=== PATIENT | female | born 1955 | race Caucasian/White ===

== ENCOUNTER 2019-01-08 04:13 | Emergency (ER) | payer MEDICAID ==
[~2019-01-08] VITALS: Ht 165.1 cm; Wt 54.0 kg
[~2019-01-08 04:13] MED LIST: BIOT1TAB PO; FISH12002 PO; FOLI1TAB16 PO; FURO-150 PO; LACT10SO32 PO; MULT-1179 PO; PANT40TA4 PO; SPIR25TA PO; thiamine tablet PO
[2019-01-08] MEDS ORDERED: LIDOcaine 1% 30ml preserv. free vial IJ STA ×2 (05:28→05:30)
[2019-01-08 05:30] LABS: ALANINE AMINOTRANSFERASE 35 U/L (12-78); ALBUMIN 2.9 G/DL (3.4-5.0); ALBUMIN/GLOBULIN RATIO 0.7 (1.1-1.5); ALKALINE PHOSPHATASE 72 IU/L (46-116); ANION GAP 9 (8-16); ASPARTATE AMINO TRANSFERASE 52 U/L (10-37); BILIRUBIN,TOTAL 1.7 MG/DL (0.1-1.0); BLOOD UREA NITROGEN 14 MG/DL (7-18); BUN/CREATININE RATIO 14.1 (6.6-38.0); CALCIUM 8.8 MG/DL (8.5-10.1); CHLORIDE 102 MMOL/L (99-107); CREATININE 0.99 MG/DL (0.40-0.90); GLUCOSE 111 MG/DL (70-104); LIPASE 248 U/L (73-393); POTASSIUM 3.3 MMOL/L (3.5-5.1); SODIUM 136 MMOL/L (135-145); TOTAL CARBON DIOXIDE 25.2 MMOL/L (24-32); TOTAL PROTEIN 7.1 G/DL (6.4-8.2); eGFR 57 ML/MIN
[2019-01-08 05:43] LABS: BASOPHILS # (AUTO) 0.1 X10'3 (0-0.2); BASOPHILS % (AUTO) 0.9 % (0-1); EOSINOPHILS # (AUTO) 0.4 X10'3 (0-0.9); EOSINOPHILS % (AUTO) 5.5 % (0-6); HEMATOCRIT 35.4 % (35.0-45.0); LYMPHOCYTES # (AUTO) 2.1 X10'3 (1.1-4.8); LYMPHOCYTES % (AUTO) 30.7 % (21-51); MEAN CORPUSCULAR HEMOGLOBIN 36.5 PG (27.0-31.0); MEAN CORPUSCULAR HGB CONC 33.9 g/dL (33.0-36.5); MEAN CORPUSCULAR VOLUME 107.7 FL (78-98); MEAN PLATELET VOLUME 9.6 FL (7.4-10.4); MONOCYTES # (AUTO) 0.9 X10'3 (0-0.9); MONOCYTES % (AUTO) 12.9 % (2-12); NEUTROPHILS # (AUTO) 3.4 X10'3 (1.8-7.7); PLATELET COUNT 125 X10'3 (140-440); RED BLOOD COUNT 3.29 X10'6 (4.20-5.60); RED CELL DISTRIBUTION WIDTH 13.1 % (11.5-14.5); WHITE BLOOD COUNT 6.7 X10'3 (4.5-11.0)
[2019-01-08] MEDS ORDERED: albumin (human) 25% 100 ML IV solution IV ONE (05:45)
[2019-01-08 06:42] VITALS: BP 111/63
== END 2019-01-08 06:44 | disposition home or self-care (01) ==
LOC: ER 04:14
DX: R18.8 Other ascites (principal); R41.0 Disorientation, unspecified; R10.9 Unspecified abdominal pain; F10.10 Alcohol abuse, uncomplicated; Z86.19 Personal history of other infectious and parasitic diseases; Z88.5 Allergy status to narcotic agent; Z79.899 Other long term (current) drug therapy; Y90.9 Presence of alcohol in blood, level not specified
CPT/HCPCS: 36415; 49083; 80053; 83690; 85025; 85610; 96365; 99285; J2001; P9047

== ENCOUNTER 2019-02-09 07:26 | Day surgery (SDC) | payer MEDICAID ==
[~2019-02-09] VITALS: Ht 167.6 cm; Wt 53.3 kg
[2019-02-09] VITALS (7 sets, daily range): BP systolic 96–109; BP diastolic 56–67
[2019-02-09] MEDS ORDERED: albumin 25% 100mL bottle x 1 IV PRN (07:55)
[2019-02-09] MEDS ORDERED: normal saline 1000ml 1,000 ML IV PRN (07:55)
[2019-02-09] MEDS ORDERED: THIA50TA10 PO (08:09)
[2019-02-09] MEDS ORDERED: MULT-933 PO (08:09)
[2019-02-09] MEDS ORDERED: FOLI0.4T2 PO (08:09)
[2019-02-09] MEDS ORDERED: FURO-150 PO (08:09)
[2019-02-09] MEDS ORDERED: LACT10SO PO (08:09)
[2019-02-09] MEDS ORDERED: SPIR25TA5 PO (08:09)
[2019-02-09] MEDS ORDERED: PANT-47 PO (08:09)
== END 2019-02-09 10:05 | disposition home or self-care (01) ==
LOC: SSTAY O 07:26
PROVIDERS: ATTEND Radiology Diagnostic Radiology
DX: K70.31 Alcoholic cirrhosis of liver with ascites (principal); Z88.8 Allergy status to other drugs, medicaments and biological substances; Z88.5 Allergy status to narcotic agent; Z79.899 Other long term (current) drug therapy
CPT/HCPCS: 49083; C1729; J7030; P9047

== ENCOUNTER 2020-01-18 05:22 | Emergency (ER) | payer MEDICAID, OTHER ==
[~2020-01-18] VITALS: Ht 167.6 cm; Wt 47.4 kg
[~2020-01-18 05:22] MED LIST changes: +FOLI0.4T2 PO; -FOLI1TAB16 PO; +LACT10SO PO; -LACT10SO32 PO; -MULT-1179 PO; +MULT-933 PO; +PANT-47 PO; -PANT40TA4 PO; -SPIR25TA PO; +SPIR25TA5 PO; +THIA50TA10 PO; -thiamine tablet PO
[2020-01-18 05:24] VITALS: BP 141/72
--- NOTE | 2020-01-18 05:46 | NUR ---
pt states she currently drinks a pint of vodka a day
[2020-01-18 06:00] LABS: BASOPHILS % (AUTO) 0.6 % (0-1); EOSINOPHILS # (AUTO) 0.4 X10'3 (0-0.9); EOSINOPHILS % (AUTO) 5.3 % (0-6); HEMATOCRIT 44.3 % (35.0-45.0); HEMOGLOBIN 14.7 g/dl (12.0-16.0); LYMPHOCYTES # (AUTO) 3.9 X10'3 (1.1-4.8); LYMPHOCYTES % (AUTO) 56.1 % (21-51); MEAN CORPUSCULAR HEMOGLOBIN 36.3 PG (27.0-31.0); MEAN CORPUSCULAR HGB CONC 33.2 g/dL (33.0-36.5); MEAN CORPUSCULAR VOLUME 109.2 FL (78-98); MEAN PLATELET VOLUME 8.9 FL (7.4-10.4); MONOCYTES # (AUTO) 0.5 X10'3 (0-0.9); MONOCYTES % (AUTO) 6.6 % (2-12); NEUTROPHILS # (AUTO) 2.2 X10'3 (1.8-7.7); NEUTROPHILS % (AUTO) 31.4 % (42-75); PLATELET COUNT 72 X10'3 (140-440); RED BLOOD COUNT 4.06 X10'6 (4.20-5.60); RED CELL DISTRIBUTION WIDTH 15.1 % (11.5-14.5); WHITE BLOOD COUNT 6.9 X10'3 (4.5-11.0)
[2020-01-18 06:03] LABS: URINE HCG NEGATIVE (NEG)
[2020-01-18 06:09] LABS: CLARITY,URINE CLEAR (Clear); COLOR,URINE YELLOW (Yellow); GLUCOSE, URINE NEGATIVE (Neg); KETONES,URINE 15 mg/dl (Neg); LEUKOCYTE ESTERASE ,URINE NEGATIVE (Neg); NITRITES, URINE NEGATIVE (Neg); OCCULT BLOOD,URINE MODERATE (Neg); PROTEIN,URINE 30 mg/dl (Neg); URINE AMPHETAMINE SCREEN NEGATIVE (Neg); URINE BARBITUATE SCREEN NEGATIVE (Neg); URINE BENZODIAZEPINES SCREEN NEGATIVE (Neg); URINE CANNABINOID SCREEN NEGATIVE (Neg); URINE COCAINE SCREEN NEGATIVE (Neg); URINE METHADONE SCREEN NEGATIVE (Neg); URINE OPIATE SCREEN NEGATIVE (Neg); URINE PHENCYCLIDINE SCREEN NEGATIVE (Neg)
[2020-01-18 06:11] LABS: UA COLLECTION TYPE CLN CATCH MIDSTREAM
[2020-01-18 06:14] LABS: PARTIAL THROMBOPLASTIN TIME 26 SECONDS (22-32)
[2020-01-18 06:15] LABS: ALANINE AMINOTRANSFERASE 45 U/L (12-78); ALBUMIN 3.6 G/DL (3.4-5.0); ALBUMIN/GLOBULIN RATIO 0.8 (1.1-1.5); ALKALINE PHOSPHATASE 91 IU/L (46-116); ANION GAP 16 (8-16); ASPARTATE AMINO TRANSFERASE 107 U/L (10-37); BILIRUBIN,TOTAL 1.1 MG/DL (0.1-1.0); BLOOD UREA NITROGEN 12 MG/DL (7-18); CALCIUM 8.9 MG/DL (8.5-10.1); CHLORIDE 105 MMOL/L (99-107); CREATININE 0.86 MG/DL (0.40-0.90); GLUCOSE 90 MG/DL (70-104); POTASSIUM 3.8 MMOL/L (3.5-5.1); SODIUM 144 MMOL/L (135-145); TOTAL PROTEIN 8.1 G/DL (6.4-8.2); eGFR 67 ML/MIN
[2020-01-18 06:16] LABS: ETHANOL 0.421 GM/DL (0.0-0.010); LIPASE 229 U/L (73-393)
[2020-01-18 06:16] LABS: RBC,URINE 0-2 /HPF (0-2); SQUAMOUS EPITHELIAL CELL,UR MANY /LPF (FEW)
[2020-01-18 06:17] LABS: BACTERIA,URINE 1+ /HPF (Neg); HYALINE CASTS 0-3 /LPF (NEGATIVE)
[2020-01-18 06:35] LABS: PLATELET ESTIMATE DECREASED; SMUDGE CELLS FEW; TOTAL CELLS COUNTED 100
--- NOTE | 2020-01-18 07:15 | NUR ---
PATIENT DEPARTING FROM ER THROUGH AMBULANCE DOORS. PATIENT BROUGHT BACK IN TO HAVE IV REMOVED AND STATES SHE DOES NOT WANT TO WAIT ANY LONGER. IV REMOVED AND BANDAID APPLIED TO SITE. PATIENT DEPARTED AMBULATORY IN STABLE CONDITION. CHARGE NURSE AND DR. WALKER NOTIFIED OF PATIENT ELOPEMENT.
== END 2020-01-18 18:56 | disposition left against medical advice (07) ==
LOC: ER 05:23
DX: K70.31 Alcoholic cirrhosis of liver with ascites (principal); R10.9 Unspecified abdominal pain; F10.10 Alcohol abuse, uncomplicated; Z86.19 Personal history of other infectious and parasitic diseases; Z88.5 Allergy status to narcotic agent; Z88.8 Allergy status to other drugs, medicaments and biological substances; Z79.899 Other long term (current) drug therapy; Y90.0 Blood alcohol level of less than 20 mg/100 ml
CPT/HCPCS: 36415; 80053; 80305; 80320; 81001; 81025; 83690; 85025; 85610; 85730; 99284

== ENCOUNTER 2020-03-21 06:34 | Day surgery (SDC) | payer BC ==
[~2020-03-21] VITALS: Ht 167.6 cm; Wt 50.6 kg
[2020-03-21 07:22] VITALS: BP 137/107
[2020-03-21] MEDS ORDERED: albumin 25% 100mL bottle x 1 IV PRN (07:25)
[2020-03-21 08:45] VITALS: BP 135/78
[2020-03-21 09:00] VITALS: BP 115/77
[2020-03-21 09:15] VITALS: BP 117/72
[2020-03-21 09:30] VITALS: BP 122/74
== END 2020-03-21 09:55 | disposition home or self-care (01) ==
LOC: SSTAY O 06:34
PROVIDERS: ATTEND Radiology Diagnostic Radiology
DX: K70.31 Alcoholic cirrhosis of liver with ascites (principal); F41.9 Anxiety disorder, unspecified; F32.9 Major depressive disorder, single episode, unspecified; Z86.19 Personal history of other infectious and parasitic diseases; D69.6 Thrombocytopenia, unspecified; E87.6 Hypokalemia; E83.42 Hypomagnesemia; Z88.8 Allergy status to other drugs, medicaments and biological substances; Z88.5 Allergy status to narcotic agent; Z72.89 Other problems related to lifestyle; F17.210 Nicotine dependence, cigarettes, uncomplicated; Z79.899 Other long term (current) drug therapy
CPT/HCPCS: 49083

== ENCOUNTER 2020-07-07 08:12 | Day surgery (SDC) | payer BC ==
[~2020-07-07] VITALS: Ht 165.1 cm; Wt 58.8 kg
[2020-07-07] VITALS (12 sets, daily range): BP systolic 92–152; BP diastolic 55–93
[2020-07-07] MEDS ORDERED: normal saline 1000ml 1,000 ML IV PRN (08:40)
[2020-07-07] MEDS ORDERED: ALPR1TAB2 PO (08:44)
[2020-07-07] MEDS ORDERED: TRAZ-251 PO (08:45)
[2020-07-07] MEDS: albumin 25% 100mL bottle x 1 IV PRN ×2 (09:49→10:43)
== END 2020-07-07 12:05 | disposition home or self-care (01) ==
LOC: SSTAY O 08:12
PROVIDERS: ATTEND Radiology Vascular & Interventional Radiology
DX: K70.31 Alcoholic cirrhosis of liver with ascites (principal); F41.9 Anxiety disorder, unspecified; F32.9 Major depressive disorder, single episode, unspecified; D69.6 Thrombocytopenia, unspecified; E87.6 Hypokalemia; E83.42 Hypomagnesemia; Z88.8 Allergy status to other drugs, medicaments and biological substances; Z88.5 Allergy status to narcotic agent; Z79.899 Other long term (current) drug therapy; Z86.19 Personal history of other infectious and parasitic diseases; Z72.89 Other problems related to lifestyle; F17.290 Nicotine dependence, other tobacco product, uncomplicated; Z98.890 Other specified postprocedural states; Z87.19 Personal history of other diseases of the digestive system
CPT/HCPCS: 49083; P9047

== ENCOUNTER 2020-08-10 08:24 | Day surgery (SDC) | payer BC ==
[2020-08-10] VITALS (7 sets, daily range): BP systolic 90–116; BP diastolic 54–79
[~2020-08-10] VITALS: Ht 167.6 cm; Wt 58.8 kg
[~2020-08-10 08:24] MED LIST changes: +ALPR1TAB2 PO; -BIOT1TAB PO; -FISH12002 PO; -LACT10SO PO; -MULT-933 PO; -PANT-47 PO; -THIA50TA10 PO; +TRAZ-251 PO
[2020-08-10] MEDS ORDERED: albumin 25% 100mL bottle x 1 IV PRN (08:55)
[2020-08-10] MEDS ORDERED: FOLI0.4T2 PO (09:02)
[2020-08-10] MEDS ORDERED: TRAZ-251 PO (09:02)
[2020-08-10] MEDS ORDERED: ALPR1TAB2 PO (09:02)
[2020-08-10] MEDS ORDERED: OMEP40CA13 PO (09:02)
== END 2020-08-10 10:50 | disposition home or self-care (01) ==
LOC: SSTAY O 08:24
PROVIDERS: ATTEND Radiology Diagnostic Radiology
DX: K70.31 Alcoholic cirrhosis of liver with ascites (principal); F32.9 Major depressive disorder, single episode, unspecified; F41.9 Anxiety disorder, unspecified; D69.6 Thrombocytopenia, unspecified; E87.6 Hypokalemia; E83.42 Hypomagnesemia; Z86.19 Personal history of other infectious and parasitic diseases; Z88.8 Allergy status to other drugs, medicaments and biological substances; Z88.5 Allergy status to narcotic agent; Z79.899 Other long term (current) drug therapy
CPT/HCPCS: 49083; P9047

== ENCOUNTER 2020-10-24 07:43 | Day surgery (SDC) | payer BC ==
[2020-10-24] VITALS (7 sets, daily range): BP systolic 97–134; BP diastolic 40–76
[~2020-10-24] VITALS: Ht 165.1 cm; Wt 54.2 kg
[~2020-10-24 07:43] MED LIST changes: -FOLI0.4T2 PO; +FOLI0.4T6 PO; +OMEP40CA13 PO
[2020-10-24] MEDS ORDERED: FLUT16SP2 BOTHNARES (08:29)
[2020-10-24] MEDS ORDERED: LATA7.5D EACH EAR (08:29)
[2020-10-24] MEDS ORDERED: DICL150D3 TOP (08:29)
[2020-10-24] MEDS: albumin 25% 100mL bottle x 1 IV PRN ×2 (09:25→10:20)
== END 2020-10-24 10:55 | disposition home or self-care (01) ==
LOC: SSTAY O 07:43
PROVIDERS: ATTEND Radiology Diagnostic Radiology
DX: K70.31 Alcoholic cirrhosis of liver with ascites (principal); F41.9 Anxiety disorder, unspecified; F32.9 Major depressive disorder, single episode, unspecified; D69.6 Thrombocytopenia, unspecified; E87.6 Hypokalemia; E83.42 Hypomagnesemia; Z86.19 Personal history of other infectious and parasitic diseases; Z98.890 Other specified postprocedural states; Z72.89 Other problems related to lifestyle; F17.290 Nicotine dependence, other tobacco product, uncomplicated; Z88.8 Allergy status to other drugs, medicaments and biological substances; Z88.5 Allergy status to narcotic agent; Z79.899 Other long term (current) drug therapy
CPT/HCPCS: 49083; P9047

== ENCOUNTER 2020-11-29 11:19 | Emergency (ER) | payer BC ==
[~2020-11-29] VITALS: Ht 165.1 cm; Wt 61.4 kg
[~2020-11-29 11:19] MED LIST changes: +DICL150D3 TOP; +FLUT16SP2 BOTHNARES; +LATA7.5D EACH EAR; -OMEP40CA13 PO; +OMEP40CA21 PO
[2020-11-29] MEDS ORDERED: normal saline 1000ML IV soln IVB ONE (13:45)
[2020-11-29] MEDS ORDERED: ondansetron/PF 4mg/2ml inj IV ONE (13:45)
[2020-11-29 14:20] LABS: BASOPHILS % (AUTO) 0.4 % (0-1); EOSINOPHILS % (AUTO) 0.7 % (0-6); HEMATOCRIT 38.5 % (35.0-45.0); HEMOGLOBIN 13.1 g/dl (12.0-16.0); LYMPHOCYTES # (AUTO) 0.7 X10'3 (1.1-4.8); LYMPHOCYTES % (AUTO) 13.5 % (21-51); MEAN CORPUSCULAR HEMOGLOBIN 35.6 PG (27.0-31.0); MEAN CORPUSCULAR HGB CONC 34.1 g/dL (33.0-36.5); MEAN CORPUSCULAR VOLUME 104.2 FL (78-98); MEAN PLATELET VOLUME 8.7 FL (7.4-10.4); MONOCYTES # (AUTO) 0.5 X10'3 (0-0.9); MONOCYTES % (AUTO) 10.6 % (2-12); NEUTROPHILS # (AUTO) 3.8 X10'3 (1.8-7.7); NEUTROPHILS % (AUTO) 74.8 % (42-75); RED BLOOD COUNT 3.69 X10'6 (4.20-5.60); RED CELL DISTRIBUTION WIDTH 14.1 % (11.5-14.5); WHITE BLOOD COUNT 5.1 X10'3 (4.5-11.0)
[2020-11-29 14:30] LABS: PLATELET COUNT 48 X10'3 (140-440)
[2020-11-29 14:36] LABS: PARTIAL THROMBOPLASTIN TIME 26 SECONDS (22-32)
[2020-11-29 14:38] LABS: ALANINE AMINOTRANSFERASE 25 U/L (12-78); ALBUMIN 2.7 G/DL (3.4-5.0); ALBUMIN/GLOBULIN RATIO 0.6 (1.1-1.5); ALKALINE PHOSPHATASE 99 IU/L (46-116); ANION GAP 12 (8-16); ASPARTATE AMINO TRANSFERASE 68 U/L (10-37); BILIRUBIN,TOTAL 1.8 MG/DL (0.1-1.0); BLOOD UREA NITROGEN 16 MG/DL (7-18); BUN/CREATININE RATIO 24.6 (6.6-38.0); CALCIUM 8.5 MG/DL (8.5-10.1); CHLORIDE 105 MMOL/L (99-107); CREATININE 0.65 MG/DL (0.40-0.90); GLUCOSE 155 MG/DL (70-104); LIPASE 149 U/L (73-393); MAGNESIUM 1.7 MG/DL (1.5-2.4); SODIUM 141 MMOL/L (135-145); TOTAL CARBON DIOXIDE 23.9 MMOL/L (24-32); TOTAL PROTEIN 7.1 G/DL (6.4-8.2); eGFR > 90 ML/MIN
[2020-11-29 14:39] LABS: POTASSIUM 3.8 MMOL/L (3.5-5.1)
[2020-11-29 14:55] VITALS: BP 100/60
== END 2020-11-29 15:55 | disposition home or self-care (01) ==
LOC: ER 11:19
DX: K70.9 Alcoholic liver disease, unspecified (principal); K70.31 Alcoholic cirrhosis of liver with ascites; F41.9 Anxiety disorder, unspecified; R06.02 Shortness of breath; R11.2 Nausea with vomiting, unspecified; R19.7 Diarrhea, unspecified; R53.1 Weakness; Z86.19 Personal history of other infectious and parasitic diseases; Z72.89 Other problems related to lifestyle; Z88.8 Allergy status to other drugs, medicaments and biological substances; Z88.5 Allergy status to narcotic agent; Z79.899 Other long term (current) drug therapy
CPT/HCPCS: 36415; 71045; 80053; 82140; 83690; 83735; 85025; 85610; 85730; 93005; 96374; 99285; J2405; J7030

== ENCOUNTER 2020-12-01 06:36 | Day surgery (SDC) | payer BC ==
[~2020-12-01] VITALS: Ht 165.1 cm; Wt 56.5 kg
[2020-12-01] VITALS (14 sets, daily range): BP systolic 81–129; BP diastolic 50–85
[2020-12-01] MEDS ORDERED: normal saline 1000ml 1,000 ML IV PRN (07:00)
[2020-12-01] MEDS ORDERED: LIDOcaine 1% (10mg/ml) 2ml vial ONE (07:09)
[2020-12-01] MEDS ORDERED: ALPR1TAB2 PO (07:16)
[2020-12-01] MEDS ORDERED: SPIR25TA5 PO (07:18)
[2020-12-01] MEDS: albumin 25% 100mL bottle x 1 IV PRN ×2 (08:50→10:29)
[2020-12-01] MEDS ORDERED: normal saline 500ml IV soln 1,000 ML IV ONE (11:15)
== END 2020-12-01 12:35 | disposition home or self-care (01) ==
LOC: SSTAY O 06:36
PROVIDERS: ATTEND Radiology Vascular & Interventional Radiology
DX: K70.31 Alcoholic cirrhosis of liver with ascites (principal); R14.0 Abdominal distension (gaseous); F41.9 Anxiety disorder, unspecified; F32.9 Major depressive disorder, single episode, unspecified; D69.6 Thrombocytopenia, unspecified; E87.6 Hypokalemia; E83.42 Hypomagnesemia; Z86.19 Personal history of other infectious and parasitic diseases; Z88.8 Allergy status to other drugs, medicaments and biological substances; Z88.5 Allergy status to narcotic agent; Z98.890 Other specified postprocedural states; Z72.89 Other problems related to lifestyle
CPT/HCPCS: 49083; J2001; J7040; P9047

== ENCOUNTER 2020-12-21 07:56 | Day surgery (SDC) | payer BC ==
[2020-12-21] VITALS (9 sets, daily range): BP systolic 71–104; BP diastolic 42–65
[~2020-12-21] VITALS: Ht 165.1 cm; Wt 53.9 kg
[~2020-12-21 07:56] MED LIST changes: -FLUT16SP2 BOTHNARES; -LATA7.5D EACH EAR
[2020-12-21] MEDS ORDERED: albumin 25% 100mL bottle x 1 IV PRN (08:15)
== END 2020-12-21 11:08 | disposition home or self-care (01) ==
LOC: SSTAY O 07:56
PROVIDERS: ATTEND Radiology Vascular & Interventional Radiology
DX: K70.31 Alcoholic cirrhosis of liver with ascites (principal); F41.9 Anxiety disorder, unspecified; F32.9 Major depressive disorder, single episode, unspecified; D69.6 Thrombocytopenia, unspecified; E87.6 Hypokalemia; E83.42 Hypomagnesemia; Z98.890 Other specified postprocedural states; Z88.8 Allergy status to other drugs, medicaments and biological substances; Z88.5 Allergy status to narcotic agent; Z86.19 Personal history of other infectious and parasitic diseases; F17.290 Nicotine dependence, other tobacco product, uncomplicated; Z72.89 Other problems related to lifestyle; Z79.899 Other long term (current) drug therapy
CPT/HCPCS: 49083; P9047

== ENCOUNTER 2021-01-12 08:06 | Day surgery (SDC) | payer BC ==
[2021-01-12] VITALS (11 sets, daily range): BP systolic 80–133; BP diastolic 39–70
[~2021-01-12] VITALS: Ht 165.1 cm; Wt 56.7 kg
[2021-01-12] MEDS ORDERED: albumin 25% 100mL bottle x 1 IV PRN (08:35)
[2021-01-12] MEDS ORDERED: FLUT16SP10 (08:39)
[2021-01-12] MEDS ORDERED: COVID-19 VACC, MRNA(PFIZER)/PF--BNT162b2 syringe IMVAC ONE (09:55)
== END 2021-01-12 11:57 | disposition home or self-care (01) ==
LOC: SSTAY O 08:06
PROVIDERS: ATTEND Radiology Vascular & Interventional Radiology
DX: K70.31 Alcoholic cirrhosis of liver with ascites (principal); F41.9 Anxiety disorder, unspecified; F32.9 Major depressive disorder, single episode, unspecified; E87.6 Hypokalemia; D69.6 Thrombocytopenia, unspecified; E83.42 Hypomagnesemia; Z98.890 Other specified postprocedural states; Z72.89 Other problems related to lifestyle; F17.290 Nicotine dependence, other tobacco product, uncomplicated; Z79.899 Other long term (current) drug therapy; Z88.5 Allergy status to narcotic agent; Z88.8 Allergy status to other drugs, medicaments and biological substances; Z86.19 Personal history of other infectious and parasitic diseases; Z23 Encounter for immunization
CPT/HCPCS: 0001A; 49083; 91300; P9047

== ENCOUNTER 2021-02-06 07:47 | Day surgery (SDC) | payer BC ==
[2021-02-06] VITALS (13 sets, daily range): BP systolic 82–125; BP diastolic 48–78
[~2021-02-06] VITALS: Ht 167.6 cm; Wt 59.2 kg
[~2021-02-06 07:47] MED LIST changes: -DICL150D3 TOP; +DICL150D9 TOP; +FLUT16SP10; -FURO-150 PO; -SPIR25TA5 PO
[2021-02-06] MEDS ORDERED: VITA-268 PO (08:45)
[2021-02-06] MEDS: albumin 25% 100mL bottle x 1 IV PRN ×2 (09:09→09:53)
[2021-02-06] MEDS ORDERED: COVID-19 VACC, MRNA(PFIZER)/PF--BNT162b2 syringe IMVAC ONE (11:30)
== END 2021-02-06 13:07 | disposition home or self-care (01) ==
LOC: SSTAY O 07:47
PROVIDERS: ATTEND Radiology Diagnostic Radiology
DX: K70.31 Alcoholic cirrhosis of liver with ascites (principal); Z23 Encounter for immunization; F41.9 Anxiety disorder, unspecified; F32.9 Major depressive disorder, single episode, unspecified; D69.6 Thrombocytopenia, unspecified; E87.6 Hypokalemia; E83.42 Hypomagnesemia; Z86.19 Personal history of other infectious and parasitic diseases; Z98.890 Other specified postprocedural states; Z88.8 Allergy status to other drugs, medicaments and biological substances; Z88.5 Allergy status to narcotic agent; Z79.899 Other long term (current) drug therapy
CPT/HCPCS: 0002A; 49083; 91300; P9047

== ENCOUNTER 2021-03-08 06:27 | Day surgery (SDC) | payer MEDICARE, BC ==
[~2021-03-08] VITALS: Ht 165.1 cm; Wt 58.4 kg
[2021-03-08] VITALS (13 sets, daily range): BP systolic 98–131; BP diastolic 46–87
[~2021-03-08 06:27] MED LIST changes: +VITA-268 PO
[2021-03-08] MEDS ORDERED: folic acid PO (07:45)
[2021-03-08] MEDS ORDERED: DICL20GE TOP (07:45)
[2021-03-08] MEDS: albumin 25% 100mL bottle x 1 IV PRN ×2 (08:43→09:55)
== END 2021-03-08 11:08 | disposition home or self-care (01) ==
LOC: SSTAY O 06:27
PROVIDERS: ATTEND Radiology Diagnostic Radiology
DX: K70.31 Alcoholic cirrhosis of liver with ascites (principal); F41.9 Anxiety disorder, unspecified; F32.9 Major depressive disorder, single episode, unspecified; D69.6 Thrombocytopenia, unspecified; E87.6 Hypokalemia; E83.42 Hypomagnesemia; Z86.19 Personal history of other infectious and parasitic diseases; Z98.890 Other specified postprocedural states; Z72.89 Other problems related to lifestyle; Z79.899 Other long term (current) drug therapy
CPT/HCPCS: 49083; P9047

== ENCOUNTER 2021-03-29 05:53 | Day surgery (SDC) | payer MEDICARE, BC ==
[~2021-03-29] VITALS: Ht 165.1 cm; Wt 56.5 kg
[2021-03-29] VITALS (7 sets, daily range): BP systolic 104–128; BP diastolic 55–88
[~2021-03-29 05:53] MED LIST changes: -DICL150D9 TOP; +DICL20GE TOP; -FOLI0.4T6 PO; -OMEP40CA21 PO; -VITA-268 PO; +folic acid PO
[2021-03-29] MEDS ORDERED: albumin 25% 100mL bottle x 1 IV PRN (06:25)
== END 2021-03-29 10:00 | disposition home or self-care (01) ==
LOC: SSTAY O 05:53
PROVIDERS: ATTEND Radiology Vascular & Interventional Radiology
DX: K70.31 Alcoholic cirrhosis of liver with ascites (principal); F41.9 Anxiety disorder, unspecified; F32.9 Major depressive disorder, single episode, unspecified; D69.6 Thrombocytopenia, unspecified; E87.6 Hypokalemia; E83.42 Hypomagnesemia; F17.290 Nicotine dependence, other tobacco product, uncomplicated; Z98.890 Other specified postprocedural states; Z86.19 Personal history of other infectious and parasitic diseases; Z72.89 Other problems related to lifestyle; Z88.8 Allergy status to other drugs, medicaments and biological substances; Z88.5 Allergy status to narcotic agent; Z79.899 Other long term (current) drug therapy
CPT/HCPCS: 49083; P9047

== ENCOUNTER 2021-08-23 06:41 | Day surgery (SDC) | payer BC, MEDICARE ==
[~2021-08-23] VITALS: Ht 165.1 cm; Wt 52.8 kg
[2021-08-23] VITALS (9 sets, daily range): BP systolic 79–110; BP diastolic 46–78
[2021-08-23] MEDS ORDERED: albumin 25% 100mL bottle x 1 IV PRN (07:20)
[2021-08-23] MEDS ORDERED: LIDOcaine 1%/PF 5ML 10 MG/ML VIAL IJ ONE (07:40)
[2021-08-23] MEDS ORDERED: TRAM50TA2 PO (07:47)
== END 2021-08-23 10:00 | disposition home or self-care (01) ==
LOC: SSTAY O 06:41
PROVIDERS: ATTEND Radiology Diagnostic Radiology
DX: K70.31 Alcoholic cirrhosis of liver with ascites (principal); F41.9 Anxiety disorder, unspecified; F32.A Depression, unspecified; E87.6 Hypokalemia; D69.6 Thrombocytopenia, unspecified; E83.42 Hypomagnesemia; Z72.89 Other problems related to lifestyle; F17.290 Nicotine dependence, other tobacco product, uncomplicated; Z86.19 Personal history of other infectious and parasitic diseases; Z88.5 Allergy status to narcotic agent; Z88.8 Allergy status to other drugs, medicaments and biological substances; Z79.899 Other long term (current) drug therapy
CPT/HCPCS: 49083; J3490; P9047

== ENCOUNTER 2021-09-13 06:36 | Day surgery (SDC) | payer MEDICARE ==
[2021-09-13] VITALS (7 sets, daily range): BP systolic 86–106; BP diastolic 50–69
[~2021-09-13] VITALS: Ht 165.1 cm; Wt 53.6 kg
[~2021-09-13 06:36] MED LIST changes: +TRAM50TA2 PO
[2021-09-13] MEDS ORDERED: LIDOcaine 1%/PF 5ML 10 MG/ML VIAL SQ ONE (06:40)
[2021-09-13] MEDS ORDERED: albumin 25% 100mL bottle x 1 IV PRN (07:10)
[2021-09-13] MEDS ORDERED: OMEP40CA21 PO (07:31)
[2021-09-13] MEDS ORDERED: TRAZ-256 PO (07:31)
== END 2021-09-13 10:05 | disposition home or self-care (01) ==
LOC: SSTAY O 06:36
PROVIDERS: ATTEND Preventive Medicine Aerospace Medicine
DX: K70.31 Alcoholic cirrhosis of liver with ascites (principal); F41.9 Anxiety disorder, unspecified; F32.A Depression, unspecified; D69.6 Thrombocytopenia, unspecified; E87.6 Hypokalemia; E83.42 Hypomagnesemia; Z79.899 Other long term (current) drug therapy; Z88.5 Allergy status to narcotic agent; Z88.8 Allergy status to other drugs, medicaments and biological substances; Z86.19 Personal history of other infectious and parasitic diseases
CPT/HCPCS: 49083; J3490; P9047

== ENCOUNTER 2021-10-04 07:29 | Day surgery (SDC) | payer MEDICARE ==
[~2021-10-04] VITALS: Ht 165.1 cm; Wt 56.2 kg
[2021-10-04] VITALS (7 sets, daily range): BP systolic 98–121; BP diastolic 46–75
[~2021-10-04 07:29] MED LIST changes: +OMEP40CA21 PO; -TRAM50TA2 PO; -TRAZ-251 PO; +TRAZ-256 PO
[2021-10-04] MEDS ORDERED: albumin 25% 100mL bottle x 1 IV PRN (07:45)
[2021-10-04] MEDS ORDERED: VITA-268 PO (08:00)
[2021-10-04] MEDS ORDERED: LIDOcaine 1%/PF 5ML 10 MG/ML VIAL SQ ONE (08:05)
== END 2021-10-04 10:50 | disposition home or self-care (01) ==
LOC: SSTAY O 07:29
PROVIDERS: ATTEND Radiology Vascular & Interventional Radiology
DX: K70.31 Alcoholic cirrhosis of liver with ascites (principal); F41.9 Anxiety disorder, unspecified; F32.A Depression, unspecified; D69.6 Thrombocytopenia, unspecified; E87.1 Hypo-osmolality and hyponatremia; E83.42 Hypomagnesemia; Z86.19 Personal history of other infectious and parasitic diseases; Z98.890 Other specified postprocedural states; F17.290 Nicotine dependence, other tobacco product, uncomplicated; Z72.89 Other problems related to lifestyle; Z88.8 Allergy status to other drugs, medicaments and biological substances; Z88.5 Allergy status to narcotic agent; Z79.899 Other long term (current) drug therapy
CPT/HCPCS: 49083; J3490; P9047

== ENCOUNTER 2021-10-25 07:23 | Day surgery (SDC) | payer MEDICARE, MEDICAID ==
[~2021-10-25] VITALS: Ht 165.1 cm; Wt 54.1 kg
[2021-10-25] VITALS (9 sets, daily range): BP systolic 92–130; BP diastolic 48–70
[~2021-10-25 07:23] MED LIST changes: +VITA-268 PO
[2021-10-25] MEDS ORDERED: LIDOcaine 1%/PF 5ML 10 MG/ML VIAL SQ ONE (07:40)
[2021-10-25] MEDS ORDERED: normal saline 1000ml 1,000 ML IV PRN (07:50)
[2021-10-25] MEDS ORDERED: albumin 25% 100mL bottle x 1 IV PRN (07:50)
== END 2021-10-25 10:40 | disposition home or self-care (01) ==
LOC: SSTAY O 07:23
PROVIDERS: ATTEND Radiology Diagnostic Radiology
DX: K70.31 Alcoholic cirrhosis of liver with ascites (principal); F41.9 Anxiety disorder, unspecified; F32.A Depression, unspecified; D69.6 Thrombocytopenia, unspecified; E87.6 Hypokalemia; E83.42 Hypomagnesemia; Z72.89 Other problems related to lifestyle; F17.290 Nicotine dependence, other tobacco product, uncomplicated; Z98.890 Other specified postprocedural states; Z86.19 Personal history of other infectious and parasitic diseases; Z79.899 Other long term (current) drug therapy
CPT/HCPCS: 49083; J3490; P9047

== ENCOUNTER 2021-11-13 06:50 | Day surgery (SDC) | payer MEDICARE, MEDICAID ==
[~2021-11-13] VITALS: Ht 165.1 cm; Wt 53.0 kg
[2021-11-13] VITALS (8 sets, daily range): BP systolic 125–162; BP diastolic 63–101
[2021-11-13] MEDS ORDERED: LIDOcaine 1%/PF 5ML 10 MG/ML VIAL SQ ONE (07:00)
[2021-11-13] MEDS ORDERED: SOFO1TAB3 PO (07:11)
[2021-11-13] MEDS ORDERED: albumin 25% 100mL bottle x 1 IV PRN (07:25)
== END 2021-11-13 10:10 | disposition home or self-care (01) ==
LOC: SSTAY O 06:50
PROVIDERS: ATTEND Radiology Diagnostic Radiology
DX: K70.31 Alcoholic cirrhosis of liver with ascites (principal); F41.9 Anxiety disorder, unspecified; F32.A Depression, unspecified; D69.6 Thrombocytopenia, unspecified; E87.6 Hypokalemia; E83.42 Hypomagnesemia; F17.210 Nicotine dependence, cigarettes, uncomplicated; Z72.89 Other problems related to lifestyle; Z98.890 Other specified postprocedural states; Z86.19 Personal history of other infectious and parasitic diseases; Z79.899 Other long term (current) drug therapy
CPT/HCPCS: 49083; J3490; P9047

== ENCOUNTER 2021-12-06 06:43 | Day surgery (SDC) | payer MEDICARE, MEDICAID ==
[~2021-12-06] VITALS: Ht 165.1 cm; Wt 115.2 kg
[2021-12-06] VITALS (7 sets, daily range): BP systolic 102–148; BP diastolic 40–70
[~2021-12-06 06:43] MED LIST changes: +SOFO1TAB3 PO
[2021-12-06] MEDS ORDERED: LIDOcaine 1%/PF 5ML 10 MG/ML VIAL IJ ONE (07:05)
[2021-12-06] MEDS ORDERED: albumin 25% 100mL bottle x 1 IV PRN (07:05)
== END 2021-12-06 10:50 | disposition home or self-care (01) ==
LOC: SSTAY O 06:43
PROVIDERS: ATTEND Radiology Diagnostic Radiology
DX: K70.31 Alcoholic cirrhosis of liver with ascites (principal); F41.9 Anxiety disorder, unspecified; F32.A Depression, unspecified; D69.6 Thrombocytopenia, unspecified; E87.6 Hypokalemia; E83.42 Hypomagnesemia; Z86.19 Personal history of other infectious and parasitic diseases; Z72.89 Other problems related to lifestyle; Z87.891 Personal history of nicotine dependence; Z98.890 Other specified postprocedural states; Z88.8 Allergy status to other drugs, medicaments and biological substances; Z88.5 Allergy status to narcotic agent; Z79.899 Other long term (current) drug therapy
CPT/HCPCS: 49083; J3490; P9047; Z7610

== ENCOUNTER 2021-12-27 06:45 | Day surgery (SDC) | payer MEDICARE, MEDICAID ==
[~2021-12-27] VITALS: Ht 165.1 cm; Wt 50.9 kg
[2021-12-27] MEDS ORDERED: albumin 25% 100mL bottle x 1 IV PRN (07:00)
[2021-12-27 07:21] VITALS: BP 124/67
[2021-12-27] MEDS ORDERED: LIDOcaine 1%/PF 5ML 10 MG/ML VIAL SQ ONE (07:50)
[2021-12-27 09:15] VITALS: BP 108/63
[2021-12-27 09:30] VITALS: BP 110/64
[2021-12-27 09:45] VITALS: BP 117/63
[2021-12-27 09:55] VITALS: BP 128/76
[2021-12-27 10:00] VITALS: BP 128/76
== END 2021-12-27 10:00 | disposition home or self-care (01) ==
LOC: SSTAY O 06:45
PROVIDERS: ATTEND Preventive Medicine Aerospace Medicine
DX: K70.31 Alcoholic cirrhosis of liver with ascites (principal); Z86.19 Personal history of other infectious and parasitic diseases; F41.9 Anxiety disorder, unspecified; F32.9 Major depressive disorder, single episode, unspecified; F17.210 Nicotine dependence, cigarettes, uncomplicated; Z88.6 Allergy status to analgesic agent; Z88.8 Allergy status to other drugs, medicaments and biological substances; Z79.899 Other long term (current) drug therapy; Z98.890 Other specified postprocedural states
CPT/HCPCS: 49083; A6258; J3490; Z7610; A6402

== ENCOUNTER 2022-02-21 06:53 | Day surgery (SDC) | payer MEDICARE, MEDICAID ==
[~2022-02-21] VITALS: Ht 165.1 cm; Wt 50.7 kg
[~2022-02-21 06:53] MED LIST changes: -OMEP40CA21 PO; -SOFO1TAB3 PO
[2022-02-21] MEDS ORDERED: LIDOcaine 1% 30ml preserv. free vial SQ STA (07:03)
[2022-02-21 07:08] VITALS: BP 123/56
[2022-02-21] MEDS ORDERED: albumin 25% 100mL bottle x 1 IV PRN (07:10)
[2022-02-21 08:37] VITALS: BP 126/65
[2022-02-21 08:52] VITALS: BP 111/58
[2022-02-21 09:08] VITALS: BP 106/56
[2022-02-21 09:16] VITALS: BP 138/76
== END 2022-02-21 09:25 | disposition home or self-care (01) ==
LOC: SSTAY O 06:53
PROVIDERS: ATTEND Radiology Vascular & Interventional Radiology
DX: K70.31 Alcoholic cirrhosis of liver with ascites (principal); Z86.19 Personal history of other infectious and parasitic diseases; F41.9 Anxiety disorder, unspecified; F32.9 Major depressive disorder, single episode, unspecified; F17.210 Nicotine dependence, cigarettes, uncomplicated; Z79.899 Other long term (current) drug therapy; Z98.890 Other specified postprocedural states
CPT/HCPCS: 49083; J3490; A6258

== ENCOUNTER 2022-03-14 06:49 | Day surgery (SDC) | payer MEDICARE, MEDICAID ==
[~2022-03-14] VITALS: Ht 165.1 cm; Wt 49.9 kg
[2022-03-14] MEDS ORDERED: albumin 25% 100mL bottle x 1 IV PRN (07:20)
== END 2022-03-14 07:45 | disposition home or self-care (01) ==
LOC: SSTAY O 06:49
PROVIDERS: ATTEND Radiology Vascular & Interventional Radiology
DX: R18.8 Other ascites (principal)

== ENCOUNTER 2022-03-19 15:04 | Emergency (ER) | payer MEDICARE, MEDICAID ==
[~2022-03-19] VITALS: Ht 165.1 cm; Wt 49.1 kg
[2022-03-19 16:12] LABS: BASOPHILS % (AUTO) 0.1 % (0-1); EOSINOPHILS # (AUTO) 0.2 X10'3 (0-0.9); HEMATOCRIT 39.8 % (35.0-45.0); HEMOGLOBIN 13.9 g/dl (12.0-16.0); LYMPHOCYTES # (AUTO) 1.7 X10'3 (1.1-4.8); LYMPHOCYTES % (AUTO) 20.1 % (21-51); MEAN CORPUSCULAR HEMOGLOBIN 32.9 PG (27.0-31.0); MEAN CORPUSCULAR HGB CONC 34.8 g/dL (33.0-36.5); MEAN CORPUSCULAR VOLUME 94.4 FL (78-98); MEAN PLATELET VOLUME 8.1 FL (7.4-10.4); MONOCYTES # (AUTO) 0.8 X10'3 (0-0.9); MONOCYTES % (AUTO) 9.5 % (2-12); NEUTROPHILS # (AUTO) 5.9 X10'3 (1.8-7.7); NEUTROPHILS % (AUTO) 68.3 % (42-75); PLATELET COUNT 145 X10'3 (140-440); RED BLOOD COUNT 4.22 X10'6 (4.20-5.60); RED CELL DISTRIBUTION WIDTH 13.6 % (11.5-14.5); WHITE BLOOD COUNT 8.7 X10'3 (4.5-11.0)
[2022-03-19 16:23] LABS: ALANINE AMINOTRANSFERASE 13 U/L (12-78); ALBUMIN 2.8 G/DL (3.4-5.0); ALBUMIN/GLOBULIN RATIO 0.7 (1.1-1.5); ALKALINE PHOSPHATASE 83 IU/L (46-116); ANION GAP 5 (8-16); ASPARTATE AMINO TRANSFERASE 19 U/L (10-37); BILIRUBIN,TOTAL 0.7 MG/DL (0.1-1.0); BLOOD UREA NITROGEN 10 MG/DL (7-18); BUN/CREATININE RATIO 13.3 (6.6-38.0); CALCIUM 8.7 MG/DL (8.5-10.1); CHLORIDE 103 MMOL/L (99-107); CREATININE 0.75 MG/DL (0.40-0.90); GLUCOSE 147 MG/DL (70-104); POTASSIUM 3.8 MMOL/L (3.5-5.1); SODIUM 137 MMOL/L (135-145); TOTAL CARBON DIOXIDE 28.6 MMOL/L (24-32); eGFR 77 ML/MIN
[2022-03-19 16:34] LABS: LIPASE 104 U/L (73-393)
[2022-03-19 20:56] VITALS: BP 145/69
[2022-03-19] MEDS ORDERED: traMADol 50MG tablet PO ONE (21:05)
[2022-03-19 21:10] LABS: CLARITY,URINE CLEAR (Clear); GLUCOSE, URINE NEGATIVE (Neg); KETONES,URINE NEGATIVE (Neg); LEUKOCYTE ESTERASE ,URINE NEGATIVE (Neg); NITRITES, URINE NEGATIVE (Neg); OCCULT BLOOD,URINE NEGATIVE (Neg); PROTEIN,URINE NEGATIVE (Neg)
[2022-03-19 21:18] LABS: COLOR,URINE DARK YELLOW (Yellow); UA COLLECTION TYPE CLN CATCH MIDSTREAM
== END 2022-03-19 23:02 | disposition home or self-care (01) ==
LOC: ER 15:05
DX: R10.13 Epigastric pain (principal); J44.9 Chronic obstructive pulmonary disease, unspecified; F17.210 Nicotine dependence, cigarettes, uncomplicated; Z88.5 Allergy status to narcotic agent; Z88.6 Allergy status to analgesic agent; Z88.8 Allergy status to other drugs, medicaments and biological substances
CPT/HCPCS: 36415; 71045; 80053; 81003; 83690; 83880; 84484; 85025; 93005; 99285

== ENCOUNTER 2022-03-21 06:48 | Day surgery (SDC) | payer MEDICARE, MEDICAID ==
[~2022-03-21] VITALS: Ht 165.1 cm; Wt 50.1 kg
[~2022-03-21 06:48] MED LIST changes: +LIDOcaine 1% 30ml preserv. free vial SQ STA
[2022-03-21 07:22] VITALS: BP 121/70
[2022-03-21] MEDS ORDERED: albumin 25% 100mL bottle x 1 IV PRN (07:25)
[2022-03-21 08:25] VITALS: BP 108/63
[2022-03-21 08:45] VITALS: BP 124/75
[2022-03-21 09:00] VITALS: BP 95/56
[2022-03-21 09:15] VITALS: BP 100/67
== END 2022-03-21 09:25 | disposition home or self-care (01) ==
LOC: SSTAY O 06:48
PROVIDERS: ATTEND Radiology Vascular & Interventional Radiology
DX: K70.31 Alcoholic cirrhosis of liver with ascites (principal); Z86.19 Personal history of other infectious and parasitic diseases; Z79.899 Other long term (current) drug therapy; F41.9 Anxiety disorder, unspecified; F32.9 Major depressive disorder, single episode, unspecified; Z98.890 Other specified postprocedural states
CPT/HCPCS: 49083; A6258

== ENCOUNTER 2022-04-11 06:54 | Day surgery (SDC) | payer MEDICARE, MEDICAID ==
[~2022-04-11] VITALS: Ht 165.1 cm; Wt 49.6 kg
[~2022-04-11 06:54] MED LIST changes: -LIDOcaine 1% 30ml preserv. free vial SQ STA
[2022-04-11 07:07] VITALS: BP 139/76
[2022-04-11] MEDS ORDERED: PANT-47 PO (07:20)
[2022-04-11] MEDS ORDERED: albumin 25% 100mL bottle x 1 IV PRN (07:20)
[2022-04-11 08:40] VITALS: BP 139/77
[2022-04-11 08:45] VITALS: BP 153/86
[2022-04-11 09:00] VITALS: BP 139/75
[2022-04-11 09:15] VITALS: BP 154/91
[2022-04-11 09:30] VITALS: BP 137/78
== END 2022-04-11 09:30 | disposition home or self-care (01) ==
LOC: SSTAY O 06:54
PROVIDERS: ATTEND Radiology Vascular & Interventional Radiology
DX: K70.31 Alcoholic cirrhosis of liver with ascites (principal); F41.9 Anxiety disorder, unspecified; F32.9 Major depressive disorder, single episode, unspecified; Z86.19 Personal history of other infectious and parasitic diseases; Z88.6 Allergy status to analgesic agent; Z88.8 Allergy status to other drugs, medicaments and biological substances; Z98.890 Other specified postprocedural states; Z79.899 Other long term (current) drug therapy; Z72.89 Other problems related to lifestyle; F17.210 Nicotine dependence, cigarettes, uncomplicated
CPT/HCPCS: 49083; C1729; A6258; A6449

== ENCOUNTER 2022-06-06 06:49 | Day surgery (SDC) | payer MEDICARE, MEDICAID ==
[~2022-06-06] VITALS: Ht 165.1 cm; Wt 50.6 kg
[~2022-06-06 06:49] MED LIST changes: +PANT-47 PO
[2022-06-06] MEDS ORDERED: LIDOcaine 1% 30ml preserv. free vial SQ STA (07:06)
[2022-06-06 07:25] VITALS: BP 153/87
[2022-06-06 07:27] VITALS: BP 153/87
[2022-06-06] MEDS ORDERED: albumin 25% 100mL bottle x 1 IV PRN (07:40)
--- NOTE | 2022-06-06 08:25 | NUR ---
Limited US at bedside, not enough fluid to drain per Lefty Sumit. Procedure canceled.
== END 2022-06-06 08:35 | disposition home or self-care (01) ==
LOC: SSTAY O 06:49
PROVIDERS: ATTEND Radiology Vascular & Interventional Radiology
DX: R18.8 Other ascites (principal); K74.60 Unspecified cirrhosis of liver; Z88.8 Allergy status to other drugs, medicaments and biological substances; Z88.6 Allergy status to analgesic agent; Z86.19 Personal history of other infectious and parasitic diseases; F41.9 Anxiety disorder, unspecified; F32.9 Major depressive disorder, single episode, unspecified; Z79.899 Other long term (current) drug therapy; Z98.890 Other specified postprocedural states; Z72.89 Other problems related to lifestyle; F17.210 Nicotine dependence, cigarettes, uncomplicated
CPT/HCPCS: 76705; A6258; A6402

== ENCOUNTER 2025-02-10 08:35 | Outpatient (CLI) | payer MEDICARE, MEDICAID ==
[~2025-02-10 08:35] MED LIST changes: -VITA-268 PO
--- NOTE | 2025-02-10 11:03 | RADIOLOGY REPORT ---
INDICATION: UNSPECIFIED CIRRHOSIS OF LIVER TECHNIQUE: Multiple real-time sonographic images of the abdomen were obtained. COMPARISON: PARACENTESIS THERAPEUTIC (A) on DOS: 06/06/22, PARACENTESIS THERAPEUTIC (A) on DOS: 04/11, PARACENTESIS THERAPEUTIC (A) on DOS: 03/21/22, PARACENTESIS THERAPEUTIC (A) on DOS: 02/21/22, PARAC ENTESIS THERAPEUTIC (A) on DOS: 01/31/22 FINDINGS: The liver is heterogeneous in echogenicity. The liver measures 11cm. No intrahepatic bilia ry ductal dilatation is noted. The gallbladder wall measures 0.3 cm and is unremarkable. Gallstones are noted.. The common duct ann sures 0.2 cm and is unremarkable. No pericholecystic fluid is noted. The right kidney measures 11cm. No hydronephrosis. The pancreas is not well visualized due to obscuration from bowel gas. The visualized portions of the IVC and aorta are grossly unremarkable. IMPRESSION: Hepatic cirrhosis. Hepatic steatosis. Gallstones.
== END 2025-02-10 23:59 | disposition home or self-care (01) ==
LOC: RAD 08:35
PROVIDERS: ATTEND Student in an Organized Health Care Education/Training Program
DX: K80.20 Calculus of gallbladder without cholecystitis without obstruction (principal); K76.0 Fatty (change of) liver, not elsewhere classified; K74.60 Unspecified cirrhosis of liver
CPT/HCPCS: 76700